=== PATIENT | female | born 1925 | race Caucasian/White ===

== ENCOUNTER 2017-11-03 19:03 | Inpatient (IN) | payer OTHER, MEDICARE ==
[2017-11-03] MEDS ORDERED: fentaNYL 100 MCG/2 ML INJ IVP ONE (19:38)
--- NOTE | 2017-11-03 19:42 | EDPHY ---
H & P Stated Complaint: per ems pt tripped fell, pain in L hip, LLE ext rotated/ shortened Time Seen by Provider: 11/03/17 19:38 HPI/ROS: CHIEF COMPLAINT: Left leg injury HISTORY OF PRESENT ILLNESS: The patient presents to the emergency department with an injury to her left leg following a mechanical fall at home. The patient did not strike her head or lose consciousness. She has no complaints of headache or neck pain. She is not anticoagulated. The patient denies any acute numbness or weakness. She has obvious shortening and external rotation of her left lower extremity. The patient denies prior history of orthopedic surgery. She has a remote history of a left shoulder fracture which was treated without operative intervention. The patient denies any recent hospitalizations. She denies additional acute complaints aside from moderate left leg pain with attempted movement. REVIEW OF SYSTEMS: A comprehensive 10 point review of systems is otherwise negative aside from elements mentioned in the history of present illness. Source: Patient, Family - Medical/Surgical History Hx Asthma: No Hx Chronic Respiratory Disease: No Hx Diabetes: No Hx Cardiac Disease: No Hx Renal Disease: No Hx Cirrhosis: No Hx Alcoholism: No Hx HIV/AIDS: No Hx Splenectomy or Spleen Trauma: No Other PMH: cva x 3, hypothyroid, depression, glaucoma - Social History Smoking Status: Never smoked - Physical Exam Exam: General Appearance: Elderly female, no acute distress Head: Atraumatic Eyes: Pupils equal, round, reactive ENT, Mouth: Dry mucous membranes Neck: Nontender, trachea midline Respiratory: No chest wall tender, no subcutaneous air, lungs clear bilaterally Cardiovascular: Regular rate and rhythm Abdomen: Abdomen is soft and nontender, pelvis stable Skin: No lacerations, No abrasion Back: No midline T/L/S pain Extremities: Left leg shortened and externally rotated Neurological: A&Ox3, normal motor function, normal sensory exam Constitutional: Initial Vital Signs Temperature (C) 36.5 C 11/03/17 19:06 Heart Rate 69 11/03/17 19:06 Respiratory Rate 16 11/03/17 19:06 Blood Pressure 171/87 H 11/03/17 19:06 O2 Sat (%) 97 11/03/17 19:06 O2 Delivery Mode Nasal Cannula O2 (L/minute) 2 Allergies/Adverse Reactions: No Known Allergies Allergy (Unverified 11/03/17 19:19) Home Medications: Medication Instructions Recorded Rashad Thyroid 11/03/17 Aspirin 81mg (*) 11/03/17 Chacho-Mag Complex 300-150 mg Tab 11/03/17 Citalopram 11/03/17 Cosopt (*) 11/03/17 Latanoprost 11/03/17 Levothyroxine 11/03/17 MIRTAZAPINE 11/03/17 Vitamin B Complex 11/03/17 Vitamin D3 (*) 11/03/17 Medical Decision Making - Diagnostics EKG Interpretation: EKG: Complete interpretation has been separately recorded in the [email or web address] archive. Summary impression: Sinus rhythm, rate 57, right bundle branch block Imaging Results: Imaging Impressions Chest X-Ray 11/03/17 19:07 Impression: Chest negative for acute abnormality. Query hyperexpansion. Femur X-Ray 11/03/17 19:07 Impression: Impacted, angulated and comminuted intratrochanteric fracture of the left femur. ED Course/Re-evaluation: The patient presents to the ED after mechanical fall at home. She has obvious deformity to her left leg. She is neurovascularly intact upon arrival. The patient had an IV established. She received an additional 100 mcg of fentanyl. Left femur x-ray confirms a intertrochanteric femur fracture. Consultation was made with Dr. Mao from Orthopedic surgery at 8:00 p.m.. He has requested the patient be NPO after midnight in anticipation of likely surgery tomorrow. The patient will be admitted primarily by the hospitalist service. I spoke with Dr. Cherelle Amaya at 8:00 p.m.. She will admit the patient primarily. I re-evaluated the patient at 9:00 p.m.. She is neurologically intact. She received an additional 2 mg of morphine for pain control. Differential Diagnosis: Differential diagnosis considered includes hip fracture, dislocation, pelvic fracture, neurovascular injury - Data Points Laboratory Results: Laboratory Results 11/03/17 19:35 11/03/17 19:35 11/03/17 11/03/17 11/03/17 19:35 19:35 19:35 WBC 8.43 10^3/uL 10^3/uL (3.80-9.50) RBC 3.94 10^6/uL L 10^6/uL (4.18-5.33) Hgb 12.0 g/dL L g/dL (12.6-16.3) Hct 36.2 % L % (38.0-47.0) MCV 91.9 fL fL (81.5-99.8) MCH 30.5 pg pg (27.9-34.1) MCHC 33.1 g/dL g/dL (32.4-36.7) RDW 13.0 % % (11.5-15.2) Plt Count 216 10^3/uL 10^3/uL (150-400) MPV 9.3 fL fL (8.7-11.7) Neut % (Auto) 57.2 % % (39.3-74.2) Lymph % (Auto) 30.2 % % (15.0-45.0) [place] % (Auto) 9.6 % % (4.5-13.0) Eos % (Auto) 1.9 % % (0.6-7.6) Baso % (Auto) 0.5 % % (0.3-1.7) Nucleat RBC Rel Count 0.0 % % (0.0-0.2) Absolute Neuts (auto) 4.82 10^3/uL 10^3/uL (1.70-6.50) Absolute Lymphs (auto) 2.55 10^3/uL 10^3/uL (1.00-3.00) Absolute Monos (auto) 0.81 10^3/uL H 10^3/uL (0.30-0.80) Absolute Eos (auto) 0.16 10^3/uL 10^3/uL (0.03-0.40) Absolute Basos (auto) 0.04 10^3/uL 10^3/uL (0.02-0.10) Absolute Nucleated RBC 0.00 10^3/uL 10^3/uL (0-0.01) Immature Gran % 0.6 % % (0.0-1.1) Immature Gran # 0.05 10^3/uL 10^3/uL (0.00-0.10) PT 13.8 SEC SEC (12.0-15.0) INR 1.04 (0.83-1.16) APTT 28.7 SEC SEC (23.0-38.0) Sodium 133 mEq/L L mEq/L (135-145) Potassium 4.0 mEq/L mEq/L (3.3-5.0) Chloride 103 mEq/L mEq/L (97-110) Carbon Dioxide 26 mEq/l mEq/l (22-31) Anion Gap 4 mEq/L L mEq/L (8-16) BUN 21 mg/dL mg/dL (7-23) Creatinine 1.0 mg/dL mg/dL (0.6-1.0) Estimated GFR 52 Glucose 113 mg/dL H mg/dL (70-100) Calcium 9.3 mg/dL mg/dL (8.5-10.4) Medications Given: Discontinued Medications Fentanyl (Sublimaze) 50 mcg IVP EDNOW ONE Stop: 11/03/17 19:39 Last Admin: 11/03/17 19:49 Dose: 50 mcg Morphine Sulfate (Morphine) 2 mg IVP ONCE ONE Stop: 11/03/17 20:21 Last Admin: 11/03/17 20:26 Dose: 2 mg Ondansetron HCl (Zofran) 4 mg IVP EDNOW ONE Stop: 11/03/17 19:49 Last Admin: 11/03/17 19:49 Dose: 4 mg Departure - Departure Disposition: [facility] Inpatient Acute Clinical Impression: Intertrochanteric fracture of femur Qualifiers: Encounter type: initial encounter Fracture type: closed Fracture alignment: displaced Laterality: left Qualified Code(s): S72.142A - Displaced intertrochanteric fracture of left femur, initial encounter for closed fracture Condition: Fair
[2017-11-03] MEDS ORDERED: ONDANSETRON 4 MG/2 ML VIAL ONE (19:43)
[2017-11-03 19:44] LABS: PLATELET COUNT 216 10^3/uL (150-400)
[2017-11-03] MEDS ORDERED: ONDANSETRON 4 MG/2 ML VIAL IVP ONE (19:48)
[2017-11-03 19:51] LABS: INR 1.04 (0.83-1.16); PROTIME(PATIENT) 13.8 SEC (12.0-15.0)
[2017-11-03] MEDS ORDERED: ONDANSETRON DISINTEGRATING 4 MG TAB PO PRN (20:09)
[2017-11-03] MEDS ORDERED: ACETAMINOPHEN 325 MG TAB PO PRN (20:09)
[2017-11-03] MEDS ORDERED: ONDANSETRON 4 MG/2 ML VIAL IVP PRN (20:09)
--- NOTE | 2017-11-03 20:39 | CPEKG ---
Heart Rate: 57 RR Interval: 1053 P-R Interval: 180 QRSD Interval: 128 QT Interval: 536 QTC Interval: 522 P Wells: 78 QRS Wells: -42 T Wave Wells: 53 EKG Severity - ABNORMAL ECG - EKG Impression: SINUS RHYTHM EKG Impression: RIGHT BUNDLE BRANCH BLOCK Electronically Signed By: Hemanth Meier 03-Nov-2017 20:47:38
[2017-11-03] MEDS: LIDOCAINE 4%/MENTHOL 1% PATCH TD SCH (22:03)
--- NOTE | 2017-11-03 22:06 | GHP ---
[f rep st] HISTORY AND PHYSICAL DATE OF ADMISSION: 11/03/2017 CHIEF COMPLAINT: Left femur fracture. HISTORY OF PRESENT ILLNESS: History obtained from daughter and son-in-law. The patient is a carline t 89-year-old female with a history of TIA x3, GI bleed, depression, who was brought in after a mecha nical fall. She was using her cane and carrying shoes in the other hand, turned abruptly and fell on her left side. She developed significant pain right after. She denies recent fevers, chills, or sw eats. No prodromal chest pain, shortness of breath, dizziness, or lightheadedness. No dysuria. REVIEW OF SYSTEMS: I completed a 10-point review of systems, negative except as noted in the HPI. PAST MEDICAL HISTORY: 1. TIA x3, off anticoagulation due to GI bleed. 2. History of GI bleed. 3. Hypothyroidism. 4. Depression. 5. Glaucoma. SOCIAL HISTORY: Lives in a guest house of her daughter and son-in-law. No alcohol, tobacco. Has be en for greater than 60 years. Uses a cane. FAMILY HISTORY: Noncontributory ALLERGIES: None. HOME MEDICATIONS: 1. Vitamin D3. 2. Vitamin B. 3. Remeron. 4. Levothyroxine. 5. Latanoprost. 6. Cosopt. 7. Citalopram. 8. Aspirin 81 mg daily. 9. [place] Thyroid. PHYSICAL EXAMINATION: VITAL SIGNS: Temperature 36.5, blood pressure 171/87, heart rate is in the 60 s, respirations 16, 99% on 2 L. GENERAL: Elderly female lying in bed, mildly uncomfortable. HEENT: PERRLA. Moist mucous membranes. CV: Regular rate and rhythm. LUNGS: Clear. ABDOMEN: Soft, no ntender, nondistended. Positive bowel sounds. : No Adams. MUSCULOSKELETAL: Left leg shortened and externally rotated. Tenderness over the hip. NEUROLOGIC: II-XII intact. PSYCHIATRIC: Alert, oriented x3. Chest x-ray is personally reviewed by me: Hyperexpanded, no effusion or opacity. EKG is personally reviewed by me: Right bundle branch block, no old to compare. Femur x-ray: Impacted, angulated and intertrochanteric fracture of the left femur. ASSESSMENT AND PLAN: 1. Left femur fracture: Dr. Mao will perform surgery tomorrow at 8:00 a.m. She will be n.p.o. aft er midnight. Pain control with scheduled Tylenol and Lidoderm patch to minimize narcotics. We will provide p.r.n. morphine if needed. Intravenous fluids. 2. Hypothyroidism. Resume home medications. 3. Depression. Continue Remeron. 4. Glaucoma. Home eye drops. 5. History of gastrointestinal bleed. She is no longer on anticoagulation for transient ischemic at tacks. 6. History of transient ischemic attack: Is on aspirin 81 mg. 7. Diet, regular now. N.p.o. after midnight. 8. Deep vein thrombosis prophylaxis, SCDs. DISPOSITION: Patient warrants inpatient admission for acute femur fracture warranting surgery and PT /OT. /[id number]/MODL
[2017-11-03] MEDS: NS 1,000 ML IV SCH (22:37)
[2017-11-03] MEDS: ACETAMINOPHEN 500 MG TAB PO SCH (22:37)
[2017-11-04] MEDS: PATCH REMOVAL 1 EA PATCH TD SCH (07:57)
[2017-11-04] MEDS: ACETAMINOPHEN 500 MG TAB PO SCH ×2 (07:57→19:55)
--- NOTE | 2017-11-04 10:07 | ASMTCMCOM ---
CM Note CM Note Notes: Pt in for L hip fx after fall at home. Pt with hx depression, TIA. Pt [facility]. To OR tonight with Dr. Mao. PT/OT to [facility] when appropriate. CM to follow for d/c planning. Date Signed: 11/04/2017 10:06 AM Electronically Signed By:AYSE Kaplan
[2017-11-04] MEDS: NS 1,000 ML IV SCH (11:42)
--- NOTE | 2017-11-04 12:30 | PDMN ---
Medical Necessity Medical necessity: est los>2mn for impacted, angulated L femur fracture r/t fall ; requires surgical intervention, pain control, IVF; comorbid advanced age, hypothyroid, depression, hx TIA on ASA, GIB; per order and H&P 11/03/17
[2017-11-04] MEDS ORDERED: ceFAZolin 2 GM/DEXTROSE 100 ML IV ONE (14:08)
[2017-11-04] MEDS ORDERED: LR 1,000 ML IV ONE (15:40)
--- NOTE | 2017-11-04 16:27 | HOSPPROG ---
Hospitalist Progress Note Assessment/Plan: Left angulated femur fracture - NPO for OR today for likely ORIF per Dr. Mao. -pain control -PT/OT post-op -will likely need SNF Hypothyroidism - levothyroxine Depression - cont home meds Glaucoma - stable, cont home meds H/O GI bleed - no longer on anticoagulation H/O TIA - ASA held for surgery, resume when ok per surg Full code Dispo - cont inpt DVT PPLX - defer pharm today given planned surgery, SCD's for now, start lovenox when ok per surg Subjective: Pt is frustrated, feels neglected today, waiting for OR, time delay. Pain is controlled. She remains NPO. No fevers, CP or SOB. SCD's in place. Objective: Vital Signs Temp Pulse Resp BP Pulse Ox 37 C 73 16 133/72 H 91 L 11/04/17 15:42 11/04/17 15:42 11/04/17 15:42 11/04/17 15:42 11/04/17 15:42 11/03/17 11/04/17 11/05/17 05:59 05:59 05:59 Intake Total 830 300 Balance 830 300 PT 13.8 SEC (12.0-15.0) 11/03/17 19:35 INR 1.04 (0.83-1.16) 11/03/17 19:35 - Physical Exam Constitutional: no apparent distress Eyes: PERRL Ears, Nose, Mouth, Throat: moist mucous membranes Cardiovascular: regular rate and rhythym Respiratory: no respiratory distress Gastrointestinal: normoactive bowel sounds, soft, non-tender abdomen Skin: warm Musculoskeletal: other (left hip externally rotated, 2+ DP pulses, sensation intact) Neurologic: AAOx3 Psychiatric: interacting appropriately ICD10 Worksheet Patient Problems: Problems Problem Status Onset Intertrochanteric fracture of femur Acute
[2017-11-04] MEDS ORDERED: POLYMYXIN B SULFATE 500,000 UNIT/10 ML SYR IRR ONE (16:37)
[2017-11-04] MEDS ORDERED: BACITRACIN 50,000 UNITS/10 ML SYR IRR ONE (16:37)
--- NOTE | 2017-11-04 17:38 | PDANEPAE ---
ANE Past Medical History - Pulmonary History Hx Oxygen in Use at Home: No Hx Sleep Apnea: No Sleep Apnea Screening Result - Last Documented: Negative - Endocrine History Hx Diabetes: No - Chronic Pain History Chronic Pain: No ANE Review of Systems Review of Systems: ANE Patient History - Allergies Allergies/Adverse Reactions: No Known Allergies Allergy (Unverified 11/03/17 22:32) - Home Medications Home Medications: Aspirin [Aspirin 81mg (*)] 81 mg PO DAILY 11/03/17 [Last Taken 11/02/17] Cholecalciferol Vit D3 [Vitamin D3 (*)] 2,000 units PO DAILY 11/03/17 [Last Taken 11/03/17] Citalopram Hydrobromide [Citalopram HBr] 10 mg PO DAILY 11/03/17 [Last Taken 04/11] Herbals/Supplements -Info Only 150 - 300 mg PO 11/03/17 [Last Taken 04/11] Latanoprost 2.5 ml EACHEYE 11/03/17 [Last Taken 11/02/17] Levothyroxine [Synthroid 75 mcg (*)] 75 mcg PO DAILY06 11/03/17 [Last Taken 04/11] MIRTAZAPINE [Remeron 7.5 mg] 7.5 mg PO HS 11/03/17 [Last Taken 11/02/17] Thyroid,Pork [Elizabeth Thyroid] 15 mg PO DAILY 11/03/17 [Last Taken 11/03/17] - NPO status NPO Since - Liquids (Date): 11/04/17 NPO Since - Liquids (Time): 00:00 NPO Since - Solids (Date): 11/04/17 NPO Since - Solids (Time): 00:00 - Smoking Hx Smoking Status: Never smoked ANE Labs/Vital Signs - Labs Result Diagrams: 11/03/17 19:35 11/03/17 19:35 - Vital Signs Blood Pressure: 133/72 Heart Rate: 73 Respiratory Rate: 16 O2 Sat (%): 91 Height: 157.48 cm Weight: 61.235 kg ANE Physical Exam - Airway Neck exam: FROM Mallampati Score: Class 3 Mouth exam: poor dentition - Pulmonary Pulmonary: no respiratory distress - Cardiovascular Cardiovascular: regular rate and rhythym - ASA Status ASA Status: III ANE Anesthesia Plan Anesthesia Plan: GA w LMA
[2017-11-04] MEDS ORDERED: DEXAMETHASONE 4 MG/ML VIAL ONE ×2 (17:42)
[2017-11-04] MEDS ORDERED: fentaNYL 100 MCG/2 ML INJ ONE ×3 (17:42→20:27)
[2017-11-04] MEDS ORDERED: PROPOFOL 200 MG/20 ML VIAL ONE (17:42)
[2017-11-04] MEDS ORDERED: METOCLOPRAMIDE 10 MG/2 ML VIAL ONE (17:42)
[2017-11-04] MEDS ORDERED: LIDOCAINE 2% 100 MG/5 ML SYR ONE (17:43)
[2017-11-04] MEDS: BUPIVACAINE 0.25% 30 ML SDV ONE ×2 (19:14→20:13)
[2017-11-04] MEDS ORDERED: SUGAMMADEX SODIUM 200 MG/2 ML VIAL IVP ONE (19:36)
[2017-11-04] MEDS ORDERED: ONDANSETRON 4 MG/2 ML VIAL IVP PRN (20:05)
[2017-11-04] MEDS ORDERED: OXYCODONE/APAP 5/325 TAB PO PRN (20:05)
[2017-11-04] MEDS ORDERED: ACETAMINOPHEN 325 MG TAB PO PRN (20:05)
[2017-11-04] MEDS ORDERED: NALOXONE HCL 0.4 MG/ML INJ IVP PRN (20:11)
[2017-11-04] MEDS ORDERED: ALBUTEROL 3 ML DEYVIAL IH PRN (20:11)
--- NOTE | 2017-11-04 20:11 | POSTOPPROG ---
Post Op Note Date of Operation: 11/04/17 Surgeon: Dorie Mao Dental Sales Representative: Teresa Estrella PA-C Anesthesia: GET(General Endotracheal) Pre-op Diagnosis: Left femur fracture Post-op Diagnosis: Left femur fracture Procedure: Left femur TFN Inf/Abcess present in the surg proc area at time of surgery?: No EBL: [id number]
--- NOTE | 2017-11-04 20:13 | POSTANESTH ---
Post Anesthetic Evaluation Cardiovascular Status: Similar to Pre-Op Cond Respiratory Status: Similar to Pre-op Cond. Level of Consciousness/Mental Status: Mildly Sleepy, Arousable Pain Control: Adequate, Prn Tx Ordered Nausea/Vomiting Control: Adequate, Prn Tx Ordered Complications Possibly Related to Anesthesia: None Noted
[2017-11-04] MEDS ORDERED: ONDANSETRON 4 MG/2 ML VIAL ONE (20:22)
[2017-11-04] MEDS: fentaNYL 100 MCG/2 ML INJ IVP PRN ×2 (20:29→20:38)
--- NOTE | 2017-11-04 21:17 | GOP ---
[f rep st] OPERATIVE REPORT DATE OF OPERATION: 11/04/2017 SURGEON: Dorie Mao MD VICE PRESIDENT LENDING: Teersa Estrella PA-C, whose presence was medically necessary. ANESTHESIA: Via endotracheal intubation. PREOPERATIVE DIAGNOSIS: Left subtrochanteric fracture. POSTOPERATIVE DIAGNOSIS: Left subtrochanteric fracture. PROCEDURE PERFORMED: FINDINGS: DESCRIPTION OF PROCEDURE: Patient brought to the operating room after the left side had been identif ied as the correct side by the patient, nurse and physician. Once in the operating room, she was eva charlie under general anesthesia using endotracheal intubation. Once asleep, she was placed on a tractio n table with a well-padded peroneal post. She had both legs placed in appropriate leg bergman. Tract ion was placed on the right leg in order to help with reduction. Fluoroscopy was used to guide reduc tion due to the significant amount of comminution that she had associated with the fracture, reductio n was somewhat tricky, but once reduced well enough, the left hip and flank were sterilely prepped an d draped in the usual fashion using GSI solution. Once prepped and draped, fluoroscopy was used to g uide the area of insertion sites for the helical screw, as well as the insertion site for the fermin. O nce the areas had been marked, a 6 cm incision was made at and above the greater trochanter with yesica p dissection carried down through the skin and subcutaneous layers with bleeding controlled using salina ctrocautery. The fascia overlying the gluteus amy was divided in line with its fibers, and blunt dissection was carried down onto the greater trochanter. A guidewire was placed on the greater troc hanter. Fluoroscopy was used in the AP and lateral dimensions in order to guide its insertion into t he greater trochanteric piece. Once it was in place, the cannulated awl was brought over the guidewi re by hand to create a hole into the greater trochanter for insertion of the guide fermin. The regional guidewire as well as the hand broach was removed, and a ball-tipped guidewire was passed into the fe moral canal under the use of fluoroscopy. Once in proper position, it was measured to be 400 mm in l ength. Therefore, sequential reamers were passed over the guidewire up to 12 mm in order to accommod ate an 11 mm fermin. Once done, a 400 x 11 mm trochanteric femoral nail from [employer] was put into place , noted to fit securely. Fluoroscopy was used to ensure adequate depth having been placed to hold th e helical nail. The insertion guide for the helical nail was then incised on the left side of the fe mur. Blunt dissection was carried down on the side of the bone and the insertion device was brought to the bone at the femoral side. Guidewire was passed into the femur into the femoral neck and head under the use of fluoroscopy to ensure proper positioning. Secondary to the angulation of the fracture, the helical blade had a steep angle into the femoral hea d. Once in place, the guidewire was measured to be 90 mm in length. Therefore, a 90 mm helical blad e from [employer] was passed over the guidewire into the femoral neck and head. This position was check ed under AP and lateral projections and noted to be below the subchondral surface. The locking screw within the proximal portion of the fermin was tightened and held it in place. And the insertion handle on the TFN was removed. The leg was then brought out of adduction into neutral position so that flu oroscopy could gain perfect circles at the distal end of the fermin. Once perfect circles were able to be obtained, an incision was made directly over the lateral femoral condyle of the femur. Drill was passed through the lateral cortex through the fermin into the medial cortex of the femur. It was measur ed and a 60 mm screw was passed through the end of the femur and through the fermin to gain rotational c ontrol. Once completed, all wounds were thoroughly irrigated with antibiotic solution and closed in layers to include 0 Vicryl suture for the fascial layers, with 0 Vicryl and 2-0 Vicryl suture for the subcutaneous layers, and jj for the skin. The wounds were dressed with Xeroform, 4 x 4, and Te gaderm. She was completely undraped in the operating room and both legs taken out of their appropria te leg bergman. She was placed supine. The peroneal post was removed. She was transferred onto a be d. She was woken up, extubated, and sent to recovery room in good condition. PROCEDURE PERFORMED: Left trochanteric femoral nail with fluoroscopy INDICATION FOR SURGERY: This is an 89-year-old female who fell at home. Had pain and deformity of t he leg, was diagnosed with a subtrochanteric fracture and admitted to the hospital for further treatm ent. /[id number]/MODL
[2017-11-04] MEDS: LIDOCAINE 4%/MENTHOL 1% PATCH TD SCH (22:34)
[2017-11-04] MEDS: MIRTAZAPINE 15 MG TAB PO SCH (22:34)
[2017-11-04] MEDS: LATANOPROST 0.005% 2.5 ML OPHT DROPS EACHEYE SCH (22:34)
[2017-11-05] MEDS: ACETAMINOPHEN 500 MG TAB PO SCH ×4 (02:14→16:33)
[2017-11-05] MEDS: Thyroid,Pork [Armour Thyroid] 15 MG PO SCH (08:00)
[2017-11-05] MEDS: LEVOTHYROXINE 75 MCG TAB PO SCH (09:38)
[2017-11-05] MEDS: CHOLECALCIFEROL VIT D3 1,000 UNITS TAB PO SCH (10:11)
[2017-11-05] MEDS: CITALOPRAM 20 MG TAB PO SCH (10:12)
[2017-11-05] MEDS: ASPIRIN 81 MG CHEWABLE TAB PO SCH (10:13)
--- NOTE | 2017-11-05 10:22 | HOSPPROG ---
Hospitalist Progress Note Assessment/Plan: Left angulated femur fracture - POD #1 from surgical nail fixation -pain control -PT/OT post-op -will likely need SNF Hypothyroidism - levothyroxine Depression - cont home meds Glaucoma - stable, cont home meds H/O GI bleed - no longer on anticoagulation H/O TIA - ASA held for surgery, resume when ok per surg Full code Dispo - cont inpt DVT PPLX - start lovenox tonight when >24 hrs post-op if ok with surg Subjective: Pt in quite a bit of pain this morning after moving around a bit. Pain subsided from 02/01 to 510 during my visit. No CP or SOB. No fevers. Taking some po. Objective: Vital Signs Temp Pulse Resp BP Pulse Ox 36.8 C 94 16 99/54 L 92 11/05/17 07:29 11/05/17 07:29 11/05/17 07:29 11/05/17 07:29 11/05/17 07:29 Laboratory Results 11/05/17 01:15 11/04/17 11/05/17 11/06/17 05:59 05:59 05:59 Intake Total 830 1860 Output Total 1400 Balance 830 460 PT 13.8 SEC (12.0-15.0) 11/03/17 19:35 INR 1.04 (0.83-1.16) 11/03/17 19:35 - Physical Exam Constitutional: no apparent distress Eyes: PERRL Ears, Nose, Mouth, Throat: moist mucous membranes Cardiovascular: regular rate and rhythym Respiratory: no respiratory distress, clear to auscultation Gastrointestinal: normoactive bowel sounds, soft, non-tender abdomen Skin: warm Musculoskeletal: full muscle strength, other (left hip dressing c/d/i) Neurologic: AAOx3 Psychiatric: interacting appropriately ICD10 Worksheet Patient Problems: Problems Problem Status Onset Intertrochanteric fracture of femur Acute
[2017-11-05] MEDS: LIDOCAINE 4%/MENTHOL 1% PATCH TD SCH ×2 (11:56→21:16)
[2017-11-05] MEDS: PATCH REMOVAL 1 EA PATCH TD SCH (12:36)
--- NOTE | 2017-11-05 13:47 | ASMTCMCOM ---
CM Note CM Note Notes: Referrals were sent to several SNF Reh[facility] including [facility]. Son and [id number] given list of SNF referrals and it was explained that [facility] is presently difficult to be admitted to. CM to follow. D/C Plan: Anticipate SNF Rehab Date Signed: 11/05/2017 01:46 PM Electronically Signed By:Kathleen Persaud
--- NOTE | 2017-11-05 16:17 | SOAPPROG ---
SOAP Progress Note Assessment/Plan: Assessment: Plan: Subjective: states she has pain but better than pre-op distal dressing with bloddy drainage but other sC&D foot NVI reportedly OOB twice today cont PT and pain meds Objective: Vital Signs Temp Pulse Resp BP Pulse Ox 36.8 C 84 16 90/44 L 91 L 11/05/17 15:42 11/05/17 15:42 11/05/17 15:42 11/05/17 15:42 11/05/17 15:42 Laboratory Results 11/05/17 01:15 11/04/17 11/05/17 11/06/17 05:59 05:59 05:59 Intake Total 830 1860 Output Total 1400 Balance 830 460 PT 13.8 SEC (12.0-15.0) 11/03/17 19:35 INR 1.04 (0.83-1.16) 11/03/17 19:35 ICD10 Worksheet Patient Problems: Problems Problem Status Onset Intertrochanteric fracture of femur Acute
[2017-11-05] MEDS: ENOXAPARIN 40 MG/0.4 ML SYR SC SCH (21:16)
[2017-11-05] MEDS: MIRTAZAPINE 15 MG TAB PO SCH (21:17)
[2017-11-05] MEDS: DORZOLAMIDE HCL EACHEYE SCH (21:31)
[2017-11-05] MEDS: TIMOLOL EACHEYE SCH (21:31)
[2017-11-05] MEDS: traMADol 50 MG TAB PO PRN (21:36)
[2017-11-05] MEDS: LATANOPROST 0.005% 2.5 ML OPHT DROPS EACHEYE SCH ×2 (21:39→21:45)
[2017-11-06] MEDS: NS 1,000 ML IV SCH (00:13)
[2017-11-06] MEDS: ACETAMINOPHEN 500 MG TAB PO SCH ×4 (00:22→20:31)
[2017-11-06] MEDS: PATCH REMOVAL 1 EA PATCH TD SCH (00:27)
[2017-11-06] MEDS: traMADol 50 MG TAB PO PRN (04:56)
[2017-11-06] MEDS: LEVOTHYROXINE 75 MCG TAB PO SCH (05:00)
[2017-11-06] MEDS: CHOLECALCIFEROL VIT D3 1,000 UNITS TAB PO SCH (08:29)
[2017-11-06] MEDS: DORZOLAMIDE HCL EACHEYE SCH (08:30)
[2017-11-06] MEDS: TIMOLOL EACHEYE SCH (08:30)
[2017-11-06] MEDS: ASPIRIN 81 MG CHEWABLE TAB PO SCH (08:30)
[2017-11-06] MEDS: CITALOPRAM 20 MG TAB PO SCH (08:30)
[2017-11-06] MEDS: ENOXAPARIN 40 MG/0.4 ML SYR SC SCH (08:31)
--- NOTE | 2017-11-06 10:26 | HOSPPROG ---
Hospitalist Progress Note Assessment/Plan: Left angulated femur fracture - POD #2 from surgical nail fixation -pain control with scheduled tylenol, prn low dose tramadol -cont PT/OT -will likely need SNF ABLA - hgb 12 --> 6.5. -transfuse 2 units today -follow h&h Hypotension - suspect volume depletion given above, no fevers or e/o infection -prbc's are the best volume licensed physical therapist Hypothyroidism - levothyroxine Depression - cont home meds Glaucoma - stable, cont home meds H/O GI bleed - no longer on anticoagulation H/O TIA - ASA held for surgery, resume when ok per surg Full code Dispo - cont inpt DVT PPLX - hold lovenox given low hgb, SCD's for now. Resume Lovenox when h&h stable. Subjective: Pt is fatigued. C/O 7/10 pain, though she is also drifting off to sleep. No CP or SOB. Objective: Vital Signs Temp Pulse Resp BP Pulse Ox 36.9 C 87 16 102/49 L 91 L 11/06/17 07:57 11/06/17 07:57 11/06/17 07:57 11/06/17 07:57 11/06/17 07:57 Laboratory Results 11/06/17 09:23 11/05/17 11/06/17 11/07/17 05:59 05:59 05:59 Intake Total 1860 1070 Output Total 1400 Balance 460 1070 PT 13.8 SEC (12.0-15.0) 11/03/17 19:35 INR 1.04 (0.83-1.16) 11/03/17 19:35 - Physical Exam Constitutional: no apparent distress Eyes: PERRL Ears, Nose, Mouth, Throat: moist mucous membranes Cardiovascular: regular rate and rhythym Respiratory: no respiratory distress, clear to auscultation Gastrointestinal: normoactive bowel sounds, soft, non-tender abdomen Skin: warm Musculoskeletal: full muscle strength, other (LLE dressings c/d/i) Neurologic: AAOx3 Psychiatric: interacting appropriately ICD10 Worksheet Patient Problems: Problems Problem Status Onset Intertrochanteric fracture of femur Acute
[2017-11-06] MEDS: Thyroid,Pork [Armour Thyroid] 15 MG PO SCH (11:03)
[2017-11-06] MEDS ORDERED: POLYETHYLENE GLYCOL 3350 17 GM PKT PO PRN (11:17)
[2017-11-06] MEDS ORDERED: MAGNESIUM HYDROXIDE 30 ML UDCUP PO PRN (11:17)
[2017-11-06] MEDS ORDERED: BISACODYL 10 MG SUPP PR PRN (11:17)
[2017-11-06] MEDS ORDERED: LACTULOSE 20 GM/30 ML UDCUP PO PRN (11:17)
[2017-11-06] MEDS: SENNOSIDES/DOCUSATE SODIUM TAB PO SCH ×2 (13:18→20:31)
--- NOTE | 2017-11-06 13:44 | ASMTCMCOM ---
CM Note CM Note Notes: Met with patient's family. Family would like to move their parents to [place] where there are more sblings as well as grandchildren to support them in A.L. or SNF. Patient's has dementia and patient they report is usually confused in AM and clears more in afternoon. Family would like to move Dad to [place] soon and then bring Mom after rehab. Family to go tour [facility] today. [facility] has a Memory Care Unit, so could possibly take Patient's on Memory Care and in SNF and then travel to [place]. Date Signed: 11/06/2017 01:43 PM Electronically Signed By:Maria D Gr LCSW
--- NOTE | 2017-11-06 17:06 | SOAPPROG ---
SOAP Progress Note Assessment/Plan: Assessment: Plan: Subjective: family states that she's been tired and has increased pain compared to yesterday no change in dressing foot NVI cont pain meds and PT Objective: Vital Signs Temp Pulse Resp BP Pulse Ox 37.1 C 76 20 94/51 L 99 11/06/17 15:14 11/06/17 15:14 11/06/17 15:14 11/06/17 15:14 11/06/17 15:14 Laboratory Results 11/06/17 09:23 11/05/17 11/06/17 11/07/17 05:59 05:59 05:59 Intake Total 1860 1070 Output Total 1400 Balance 460 1070 PT 13.8 SEC (12.0-15.0) 11/03/17 19:35 INR 1.04 (0.83-1.16) 11/03/17 19:35 ICD10 Worksheet Patient Problems: Problems Problem Status Onset Intertrochanteric fracture of femur Acute
[2017-11-06] MEDS: LIDOCAINE 4%/MENTHOL 1% PATCH TD SCH (20:31)
[2017-11-06] MEDS: MIRTAZAPINE 15 MG TAB PO SCH (20:31)
[2017-11-06] MEDS: LATANOPROST 0.005% 2.5 ML OPHT DROPS EACHEYE SCH (20:58)
[2017-11-07] MEDS: TIMOLOL EACHEYE SCH ×2 (03:31→11:28)
[2017-11-07] MEDS: DORZOLAMIDE HCL EACHEYE SCH ×4 (03:31→21:29)
[2017-11-07] MEDS: LEVOTHYROXINE 75 MCG TAB PO SCH (05:51)
[2017-11-07] MEDS: traMADol 50 MG TAB PO PRN ×2 (05:51→15:08)
[2017-11-07] MEDS: CITALOPRAM 20 MG TAB PO SCH (10:50)
[2017-11-07] MEDS: CHOLECALCIFEROL VIT D3 1,000 UNITS TAB PO SCH (10:50)
[2017-11-07] MEDS: ASPIRIN 81 MG CHEWABLE TAB PO SCH (10:50)
[2017-11-07] MEDS: SENNOSIDES/DOCUSATE SODIUM TAB PO SCH ×2 (10:51→21:28)
[2017-11-07] MEDS: Thyroid,Pork [Armour Thyroid] 15 MG PO SCH (11:02)
[2017-11-07] MEDS: PATCH REMOVAL 1 EA PATCH TD SCH (11:06)
[2017-11-07] MEDS: ACETAMINOPHEN 500 MG TAB PO SCH ×3 (11:06→21:28)
[2017-11-07] MEDS: TIMOLOL MALEAT EACHEYE SCH ×2 (13:28→21:29)
--- NOTE | 2017-11-07 13:42 | SOAPPROG ---
SOAP Progress Note Assessment/Plan: Assessment: Leticia is now POD #3 from left femur long TFN. She is continuing to complain of pain. She has been up with therapy and using the walker with pain. PE: Dressings intact. The distal dressing is saturated so dressing changed today. Incision clean and dry NV intact LLE Calf soft to compression without pain Plan: We will have her continue to work with PT/OT and plan eventual transfer to a SNF. We discussed increasing her Tramadol due to her pain. I discussed this with Padma Benjamin and she agreed. 11/07/17 13:37 11/07/17 15:17 Objective: Vital Signs Temp Pulse Resp BP Pulse Ox 36.6 C 77 16 127/65 H 97 11/07/17 08:00 11/07/17 08:00 11/07/17 08:00 11/07/17 08:00 11/07/17 08:00 Laboratory Results 11/07/17 05:10 11/07/17 05:10 11/06/17 11/07/17 11/08/17 05:59 05:59 05:59 Intake Total 1070 350 Balance 1070 350 PT 13.8 SEC (12.0-15.0) 11/03/17 19:35 INR 1.04 (0.83-1.16) 11/03/17 19:35 ICD10 Worksheet Patient Problems: Problems Problem Status Onset Intertrochanteric fracture of femur Acute
--- NOTE | 2017-11-07 13:52 | HOSPPROG ---
Hospitalist Progress Note Assessment/Plan: Leticia Ware is an 85 y/o woman who sustained a mechanical fall while using her cane, Today is my first encounter with the patient, chart reviewed. Left angulated femur fracture - POD #3 from surgical nail fixation -pain control with scheduled Tylenol, prn low dose tramadol -cont PT/OT -will need SNF -spoke with Teresa OLMOS with orthopedics about pain management; have asked nursing staff to give her higher dose of tramadol while getting oob ABLA -s/p transfusion of 2 units, hgb improved at 8.7 was 6.5 Hypotension - -resolved after transfusion Hypothyroidism - levothyroxine Depression - cont home meds Glaucoma - stable, cont home meds H/O GI bleed - no longer on anticoagulation H/O TIA - ASA held for surgery, resume when ok per surg Full code Dispo - cont inpt DVT PPLX - hold Lovenox another night to assure stability, patient has athrombic pumps and ayleen hose on, showed her how to do ankle pumps. If Hgb, Hct are stable; will re-initiate LMWH tomorrow morning. Reviewed with the patient and her family the risks and benefits of holding Lovenox. They understand. If Leticia cont to have pain, will adjust pain meds. Appreciate Surgical team. Get a repeat h,h in the a.m. Subjective: Leticia is having no pain while in bed. Says she wants to go home. Objective: Vital Signs Temp Pulse Resp BP Pulse Ox 36.6 C 77 16 127/65 H 97 11/07/17 08:00 11/07/17 08:00 11/07/17 08:00 11/07/17 08:00 11/07/17 08:00 Laboratory Results 11/07/17 05:10 11/07/17 05:10 11/06/17 11/07/17 11/08/17 05:59 05:59 05:59 Intake Total 1070 350 Balance 1070 350 PT 13.8 SEC (12.0-15.0) 11/03/17 19:35 INR 1.04 (0.83-1.16) 11/03/17 19:35 - Physical Exam Constitutional: no apparent distress, appears nourished, not in pain, chronically ill appearing Eyes: PERRL Ears, Nose, Mouth, Throat: hearing normal Cardiovascular: regular rate and rhythym Respiratory: no respiratory distress Gastrointestinal: normoactive bowel sounds, soft, non-tender abdomen Skin: warm, other (left upper thigh area with swelling), No normal color (pale) Musculoskeletal: generalized weakness Neurologic: AAOx3 Psychiatric: interacting appropriately, thought process linear ICD10 Worksheet Patient Problems: Problems Problem Status Onset Intertrochanteric fracture of femur Acute
[2017-11-07] MEDS ORDERED: DORZOLAMIDE HCL EACHEYE SCH (21:00)
[2017-11-07] MEDS ORDERED: TIMOLOL EACHEYE SCH (21:00)
[2017-11-07] MEDS: MIRTAZAPINE 15 MG TAB PO SCH (21:28)
[2017-11-08] MEDS: LATANOPROST 0.005% 2.5 ML OPHT DROPS EACHEYE SCH (00:46)
[2017-11-08] MEDS: LIDOCAINE 4%/MENTHOL 1% PATCH TD SCH (00:46)
[2017-11-08] MEDS: LEVOTHYROXINE 75 MCG TAB PO SCH (06:31)
[2017-11-08 08:26] VITALS: BP 107/54
[2017-11-08] MEDS: ASPIRIN 81 MG CHEWABLE TAB PO SCH (08:34)
[2017-11-08] MEDS: CHOLECALCIFEROL VIT D3 1,000 UNITS TAB PO SCH (08:35)
[2017-11-08] MEDS: traMADol 50 MG TAB PO PRN (08:36)
[2017-11-08] MEDS: CITALOPRAM 20 MG TAB PO SCH (08:37)
--- NOTE | 2017-11-08 08:38 | HOSPPROG ---
Hospitalist Progress Note Assessment/Plan: Leticia Ware is an 85 y/o woman who sustained a mechanical fall while using her cane. Left angulated femur fracture - POD #4 from surgical nail fixation -pain control with scheduled Tylenol, prn low dose tramadol -cont PT/OT -will need SNF ABLA -s/p transfusion of 2 units, hgb improved at 8.7 was 6.5 Hypotension - -resolved after transfusion Hypothyroidism - levothyroxine Depression - cont home meds Glaucoma - stable, cont home meds H/O GI bleed - no longer on anticoagulation H/O TIA - ASA resumed Full code Dispo - cont inpt DVT PPLX - Lovenox reinitiated *plan: dc to rehab with close f/u with Dr Mao Subjective: Leticia said pain is more manageable today, up in chair and has no complaints. Objective: Vital Signs Temp Pulse Resp BP Pulse Ox 36.4 C 78 16 107/54 L 100 11/08/17 08:00 11/08/17 08:00 11/08/17 08:00 11/08/17 08:00 11/08/17 08:00 Laboratory Results 11/08/17 05:20 11/07/17 05:10 11/07/17 11/08/17 11/09/17 05:59 05:59 05:59 Intake Total 350 400 Output Total 350 600 Balance 350 50 -600 PT 13.8 SEC (12.0-15.0) 11/03/17 19:35 INR 1.04 (0.83-1.16) 11/03/17 19:35 - Physical Exam Constitutional: appears nourished, not in pain, chronically ill appearing Eyes: PERRL Ears, Nose, Mouth, Throat: hearing normal Cardiovascular: regular rate and rhythym Respiratory: no respiratory distress, reduced air movement Gastrointestinal: normoactive bowel sounds Skin: warm, No normal color (pale) Musculoskeletal: generalized weakness Neurologic: AAOx3 Psychiatric: interacting appropriately ICD10 Worksheet Patient Problems: Problems Problem Status Onset Intertrochanteric fracture of femur Acute
[2017-11-08] MEDS: SENNOSIDES/DOCUSATE SODIUM TAB PO SCH (08:39)
[2017-11-08] MEDS: PATCH REMOVAL 1 EA PATCH TD SCH (08:39)
[2017-11-08] MEDS: ACETAMINOPHEN 500 MG TAB PO SCH (08:42)
--- NOTE | 2017-11-08 09:10 | PDIAF ---
- Diagnosis Diagnosis: left angulated femur fx s/p nail fixation, ABLA Code Status: Full Code - Medication Management Discharge Medications: Medications to Continue on Transfer Aspirin [Aspirin 81mg (*)] 81 mg PO DAILY 11/03/17 [Last Taken 11/02/17] Cholecalciferol Vit D3 [Vitamin D3 (*)] 2,000 units PO DAILY 11/03/17 [Last Taken 11/03/17] Citalopram Hydrobromide [Citalopram HBr] 10 mg PO DAILY 11/03/17 [Last Taken 04/11] Herbals/Supplements -Info Only 150 - 300 mg PO 11/03/17 [Last Taken 04/11] Latanoprost 2.5 ml EACHEYE HS 11/03/17 [Last Taken 11/02/17] Levothyroxine [Synthroid 75 mcg (*)] 75 mcg PO DAILY06 11/03/17 [Last Taken 04/11] MIRTAZAPINE [Remeron 7.5 mg] 7.5 mg PO HS 11/03/17 [Last Taken 11/02/17] Thyroid,Pork [ARMOUR THYROID] 15 mg PO DAILY 11/03/17 [Last Taken 11/03/17] Dorzolamide HCl/Timolol Maleat [Dorzolamide-Timolol Eye Drops] 1 drop EACHEYE BID 11/05/17 [Last Taken Unknown] Acetaminophen [Tylenol ES 500 mg (*)] 1,000 mg PO TID tab 11/08/17 [Last Taken Unknown] Enoxaparin [Lovenox 40 MG (*)] 40 mg SC DAILY #21 syr 11/08/17 [Last Taken Unknown] Lidocaine 4%/Menthol 1% [Icy Hot Lidocaine/Menthol 4%/1% Patch (*)] 1 patch TD DAILY@2100 patch 11/08/17 [Last Taken Unknown] Patch Removal 1 ea TD DAILY patch 11/08/17 [Last Taken Unknown] Polyethylene Glycol 3350 [Miralax 17 gm (*)] 17 gm PO DAILY PRN pkt 11/08/17 [ Last Taken Unknown] Sennosides/Docusate Sodium [Senokot-S] 1 - 2 tab PO BID tab 11/08/17 [Last Taken Unknown] traMADol [Ultram 50 mg (*)] 25 - 50 mg PO Q6HRS PRN tab 11/08/17 [Last Taken Unknown] Discharge Medications: Refer to the Discharge Home Medication list for PRN reason. PICC Care - Routine: N/A - Orders Services needed: Physical Therapy, Occupational Therapy Diet Recommendation: no restrictions on diet Diet Texture: Regular Texture Diet Additional Instructions: WBAT f/u with Dr Mao in 7-10 days continue Lovenox per surgical team needs labs monitored for anemia needs to be pre-medicated with tramadol prior to getting oob - Labs/Radiology HCT/HGB Date: 11/11/17 (weekly to assure stablilty) - Follow Up Care Current Providers and Referrals: Patient,NotPresent [Unknown] - As per Instructions Dorie Mao MD [Medical Doctor] -
--- NOTE | 2017-11-08 09:46 | GDS ---
[f rep st] DISCHARGE SUMMARY DISCHARGE DIAGNOSES: 1. Left angulated femur fracture. 2. Acute blood loss anemia. 3. Hypertension. 4. Hypothyroidism. 5. Depression. 6. Glaucoma. 7. History of gastrointestinal bleed. 8. History of transient ischemic attack. CONSULTATION: Dr. Mao HISTORY: Briefly, Leticia Ware is an 89-year-old woman who has a history of a TIA x3, GI bleed, and depression. She was brought to the emergency room after having a mechanical fall. She was using her cane and carrying her shoes in the other hand, and turned abruptly and fell on her left side. S he had significant pain. She had an x-ray performed that showed an impacted, angulated and intertroc hanteric fracture of the left femur. She was seen and evaluated by Dr. Mao and had surgery. Her po stop care was complicated in that she lost blood. She was transfused 2 units of packed red blood matthew ls and has improved. HOSPITAL COURSE: 1. Left angulated femur fracture. She is postop day #4 from surgical nail fixation. Her pain has b een well managed with Tylenol and tramadol. 2. Acute blood loss anemia. She is status post 2 units of packed red blood cells. Her hemoglobin h as remained stable over the last 2 days. 3. Hypotension, resolved. 4. Hypothyroidism, on Synthroid. 5. Depression. Home medications resumed. 6. Glaucoma, stable. 7. History of GI bleed. She is no longer on anticoagulation. Her H and H have been monitored durin g her stay. 8. History of TIA. Her aspirin has been resumed. DISCHARGE CONDITION: Stable. VITAL SIGNS: Blood pressure is 107/54, heart rate is 78, respiratory rate 16, O2 sats on room air 10 0%, temperature is 36.4 Celsius. MEDICATIONS AT DISCHARGE: Please see the EMR. DISCHARGE INSTRUCTIONS: 1. To continue Lovenox per Orthopedics. 2. Weightbearing as tolerated. 3. To premedicate the patient prior to getting out of bed. Greater than 30 minutes discharging and coordinating the patient's care. /[id number]/MODL
[2017-11-08] MEDS: ENOXAPARIN 40 MG/0.4 ML SYR SC SCH (10:08)
--- NOTE | 2017-11-08 10:18 | ASMTLACE ---
LACE Length of stay for Answers: 4-6 days current admission Acuity / Level of Answers: Yes Care: Did the patient have an inpatient admission? Comorbidities - select Answers: Cerebrovascular disease all that apply (CVA, TIA, aneurysms, vasc ular dementia) Other Notes: Hypothyroid # of Emergency department Answers: 1-2 visits in the last 6 months Social determinants Answers: Mental health diagnosis (anxiety, depression, pers onality disorders, etc.) Score: 13 Date Signed: 11/08/2017 10:18 AM Electronically Signed By:AYSE Kaplan
[2017-11-08] MEDS: Thyroid,Pork [Armour Thyroid] 15 MG PO SCH (11:07)
[2017-11-08] MEDS: TIMOLOL MALEAT EACHEYE SCH (11:13)
[2017-11-08] MEDS: DORZOLAMIDE HCL EACHEYE SCH (11:13)
--- NOTE | 2017-11-08 13:48 | ASMTCMCOM ---
CM Note CM Note Notes: Pt medically stable for d/c to [facility]. Orders sent in [employer]scripts. Meme with scheduled wc transport for 13:30. RN Farrah called report. Date Signed: 11/08/2017 01:48 PM Electronically Signed By:AYSE Kaplan
--- NOTE | 2017-11-08 14:44 | ASDISCHSUM ---
Discharge Information Plan Status:SNF Medically Cleared to Leave: Discharge Date:11/08/2017 02:10 PM CM D/C Disposition:[facility] Facility ADT D/C Disposition:[facility] Facility Projected Discharge Date:11/07/2017 11:00 AM Transportation at D/C:Wheelchair Van Discharge Delay Reason: Follow-Up Date:11/07/2017 11:00 AM Discharge Slot: Final Diagnosis:Femur fx Placement Information Referral Type:*Snf/SNF Referral ID:[id number] Provider Name:[facility] [address] Address 1:[address] Address 2: City:[place] Selection Factors: State:[place] Patient Contact Information Contact Name:PAT Relationship:Daughter Address:[address] [place] [address] Work Phone: [facility]:[place] Alternate Phone: State/Zip Code:[place] [address] Email: Financial Information Financial Class:Medicare Primary Plan Desc:MEDICARE INPATIENT Primary Plan Number:[id number] Secondary Plan Desc:[employer]ARP/MDR SUPPLEMENT Secondary Plan Number:[id number] Assessment Information LACE LACE Length of stay for Answers: 4-6 days current admission Acuity / Level of Answers: Yes Care: Did the patient have an inpatient admission? Comorbidities - select Answers: Cerebrovascular disease all that apply (CVA, TIA, aneurysms, vasc ular dementia) Other Notes: Hypothyroid # of Emergency department Answers: 1-2 visits in the last 6 months Social determinants Answers: Mental health diagnosis (anxiety, depression, pers onality disorders, etc.) Score: 13 Date Signed: 11/08/2017 10:18 AM Electronically Signed By:AYSE Kaplan [facility] Progress Note CM Note CM Note Notes: Pt in for L hip fx after fall at home. Pt with hx depression, TIA. Pt resides in [facility]. To OR tonight with Dr. Mao. PT/OT to [facility] when appropriate. CM to follow for d/c planning. Date Signed: 11/04/2017 10:06 AM Electronically Signed By:AYSE Kaplan [facility] Progress Note CM Note CM Note Notes: Referrals were sent to several SNF Rehabs including [facility]. Son and [id number] given list of SNF referrals and it was explained that [facility] is presently difficult to be admitted to. CM to follow. D/C Plan: Anticipate SNF Rehab Date Signed: 11/05/2017 01:46 PM Electronically Signed By:Kathleen Persaud [facility] Progress Note CM Note CM Note Notes: Met with patient's family. Family would like to move their parents to [place] where there are more sblings as well as grandchildren to support them in A.L. or SNF. Patient's has dementia and patient they report is usually confused in AM and clears more in afternoon. Family would like to move Dad to [place] soon and then bring Mom after rehab. Family to go tour [facility] today. [facility] has a Memory Care Unit, so could possibly take Patient's on Memory Care and in SNF and then travel to [place]. Date Signed: 11/06/2017 01:43 PM Electronically Signed By:Maria D Gr LCSW [facility] CM Progress Note CM Note CM Note Notes: Pt medically stable for d/c to [facility]. Orders sent in [employer]scripts. Meme with scheduled wc transport for 13:30. ILDEFONSO Yan called report. Date Signed: 11/08/2017 01:48 PM Electronically Signed By:AYSE Kaplan Intervention Information Intervention Type:*IM-Signed Date of Service:11/08/2017 11:04 AM Patient Type:Inpatient Staff Member:Sandrine Dumont Hours: Discipline: Severity: Comment:
== END 2017-11-08 14:10 | DRG 481 ==
LOC: F3N 22:23
PROVIDERS: ADMIT Orthopaedic Surgery; ATTEND Orthopaedic Surgery
PROC: 0QS704Z Reposition Left Upper Femur with Internal Fixation Device, Open Approach (ICD-10-PCS; principal; 2017-11-04 19:45)
PROC: 30233N1 Transfusion of Nonautologous Red Blood Cells into Peripheral Vein, Percutaneous Approach (ICD-10-PCS; 2017-11-06)
DX: S72.22XA Displaced subtrochanteric fracture of left femur, initial encounter for closed fracture (principal); D62 Acute posthemorrhagic anemia; I10 Essential (primary) hypertension; E03.9 Hypothyroidism, unspecified; F32.9 Major depressive disorder, single episode, unspecified; H40.9 Unspecified glaucoma; Z86.73 Personal history of transient ischemic attack (TIA), and cerebral infarction without residual deficits; W18.39XA Other fall on same level, initial encounter
CPT/HCPCS: 96374; 97110-GP; 97162-GP; 97166-GO; 97530-GO; 97530-GP; 97535-GO; C1713; G8978-GP-CM; G8979-GP-CJ; G8987-GO-CM; G8988-GO-CK; J0690; J1100; J1650; J2001; J2270; J2405; J2704; J2765; J3010; P9016